=== PATIENT | female | born 1995 | race Hispanic/Latino ===

== ENCOUNTER 2018-04-29 21:22 | Emergency (ER) | payer BC ==
[2018-04-29] MEDS ORDERED: CHLORHEXIDINE GLUCONATE 4 % 15 ML UD TOP ONE (21:31)
[2018-04-29] MEDS ORDERED: NEOMYCIN-BACITRACIN-POLYMYXIN 0.9 GM UD TOP ONE (21:41)
--- NOTE | 2018-04-29 21:45 | ED.PDOC ---
History of Present Illness - General Time Seen by Provider: 04/29/18 21:42 Source: patient Exam Limitations: no limitations - History of Present Illness Initial Comments: the patient is a 22-year-old female presenting to the emergency room secondary to an evulsion of the fingernail of the thumb of the left hand after the patient rolled off of the bed. No injury to the joints of the thumb. No evidence of any deeper laceration. No other injuries. Sensation appears to be preserved. Timing/Duration: momentarily Severity: moderate Improving Factors: nothing Worsening Factors: nothing Review of Systems - Review of Systems Constitutional: States: no symptoms reported EENTM: States: no symptoms reported Respiratory: States: no symptoms reported Cardiology: States: no symptoms reported Gastrointestinal/Abdominal: States: no symptoms reported Genitourinary: States: no symptoms reported Musculoskeletal: States: no symptoms reported Skin: States: see HPI Neurological: States: no symptoms reported Endocrine: States: no symptoms reported All other Systems: No Change from Baseline Physical Exam - Physical Exam General Appearance: Alert, Anxious, No apparent distress Eye Exam: bilateral normal Ears, Nose, Throat: hearing grossly normal Neck: full range of motion Respiratory: no respiratory distress, no accessory muscle use Cardiovascular/Chest: normal peripheral pulses, no edema Peripheral Pulses: radial,right: 2+, radial,left: 2+ Gastrointestinal/Abdominal: other - obese Rectal Exam: deferred Extremity: normal range of motion, no pedal edema, normal capillary refill 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 No evidence of any deeper laceration. No evidence of further injury to the thumb. Progress - Progress Progress: 04/29/18 21:45 the patient's 22-year-old female presenting to the emergency room secondary to avulsion of the left thumbnail. after risks and benefits were explained, the thumb was cleaned with Betadine and water and the nail was removed directly. Good hemostasis. She needs to cover the nail with antibiotic ointment and a Band-Aid. ER warnings were given. Keep routine follow-up with primary care doctor. Departure - Departure Clinical Impression: Fingernail avulsion, partial Qualifiers: Encounter type: initial encounter Qualified Code(s): S61.309A - Unspecified open wound of unspecified finger with damage to nail, initial encounter Disposition: Discharge to Home or Self Care Condition: Fair Diet: regular diet Activity: increase activity as tolerated Additional Instructions: the patient's 22-year-old female presenting to the emergency room secondary to avulsion of the left thumbnail. after risks and benefits were explained, the thumb was cleaned with Betadine and water and the nail was removed directly. Good hemostasis. She needs to cover the nail with antibiotic ointment and a Band-Aid. ER warnings were given. Keep routine follow-up with primary care doctor.
[2018-04-29 21:47] VITALS: BP 131/78; TEMP 98.2
[2018-04-29 22:07] VITALS: O2SAT 100
== END 2018-04-29 22:00 | disposition home or self-care (01) ==
LOC: ER 21:22
DX: S61.102A Unspecified open wound of left thumb with damage to nail, initial encounter (principal); W06.XXXA Fall from bed, initial encounter; Y92.9 Unspecified place or not applicable